=== PATIENT | male | born 1965 | race Caucasian/White ===

== ENCOUNTER 2017-09-28 10:56 | Day surgery (SDC) | payer BC ==
[2017-09-25 15:11] VITALS: BMI 43.8
[2017-09-28] MEDS ORDERED: Propofol 200 MG/20 ML VIAL ONE (12:54)
--- NOTE | 2017-09-28 16:38 | OP ---
DATE OF PROCEDURE: 09/28/2017 PROCEDURE: Colonoscopy with snare polypectomy. PREOPERATIVE DIAGNOSIS: Colon cancer screening. PROCEDURE IN DETAIL: Informed consent was obtained from the patient. He was sedated with total int ravenous anesthesia. The rectal exam was performed and was normal. The preparation quality was exc ellent. The colonoscope was advanced to the cecum where the ileocecal valve and appendiceal orifice were clearly identified. There were 2 flat pale polyps in the mid transverse colon measuring 7 mm and 10 mm. These were removed by snare cautery polypectomy. There was mild diverticulosis in the s igmoid colon. The remainder of the colonic mucosa was normal. Retroflexed views in the rectum were normal. IMPRESSION: 1. Two flat pale polyps in the transverse colon measuring 7 mm and 10 mm, removed by hot snare. 2. Mild sigmoid diverticulosis. 3. Otherwise normal colonoscopy. RECOMMENDATIONS: Surveillance colonoscopy will be determined based on the biopsy results.
== END 2017-09-28 14:00 | disposition home or self-care (01) ==
LOC: SDC 10:56
PROVIDERS: ATTEND Internal Medicine Gastroenterology
PROC: 0DBL8ZX Excision of Transverse Colon, Via Natural or Artificial Opening Endoscopic, Diagnostic (ICD-10-PCS; principal; 2017-09-28)
DX: Z12.11 Encounter for screening for malignant neoplasm of colon (principal); D12.3 Benign neoplasm of transverse colon; K57.30 Diverticulosis of large intestine without perforation or abscess without bleeding; E66.01 Morbid (severe) obesity due to excess calories; M25.50 Pain in unspecified joint; Z68.41 Body mass index [BMI] 40.0-44.9, adult; Z79.899 Other long term (current) drug therapy; Z87.891 Personal history of nicotine dependence
CPT/HCPCS: 88305; J2704

== ENCOUNTER 2019-02-24 13:15 | Outpatient (CLI) | payer BC | END 2019-02-24 13:16 | disposition home or self-care (01) | PROVIDERS: ATTEND Family Medicine | DX: Z01.818 Encounter for other preprocedural examination (principal) | CPT/HCPCS: 93017 ==